=== PATIENT | male | born 1995 | race African-American/Black ===

== ENCOUNTER 2021-06-06 16:31 | Emergency (ER) | payer OTHER ==
[~2021-06-06] VITALS: Ht 180.3 cm; Wt 111.1 kg
[2021-06-06 18:12] LABS: ABSOLUTE NEUTROPHILS 5.9 thou/uL (1.4-8.2); BASOPHILS 0.9 % (0.0-2.0); EOSINOPHILS 0.2 % (0.0-3.0); HEMATOCRIT 47.4 % (42.0-52.0); HEMOGLOBIN 15.8 gm/dL (14.0-18.0); LYMPHOCYTES 13.2 % (24.0-44.0); MCH 31.5 pg (26.0-34.0); MCHC 33.3 g/dL (28.0-37.0); MCV 94.6 fL (80.0-100.0); MONOCYTES 8.7 % (1.0-8.0); PLATELET COUNT 189 thou/uL (150-400); RBC 5.01 mil/uL (4.50-6.00); RDW 13.7 % (10.5-14.5); WBC 7.6 thou/uL (4.0-11.0)
[2021-06-06 18:26] LABS: CALCIUM 8.7 mg/dL (8.5-10.1); CREATININE 1.2 mg/dL (0.7-1.3); POTASSIUM 3.7 mmol/L (3.5-5.1)
[2021-06-06 18:36] LABS: ALBUMIN 3.5 g/dL (3.4-5.0); TOTAL BILIRUBIN 0.3 mg/dL (0.2-1.0)
[2021-06-06 19:27] LABS: URINE BILIRUBIN NEGATIVE (Negative); URINE BLOOD NEGATIVE (Negative); URINE CLARITY CLEAR; URINE COLOR YELLOW; URINE GLUCOSE-RANDOM* NEGATIVE (Negative); URINE KETONES NEGATIVE (Negative); URINE LEUKOCYTES-REFLEX NEGATIVE (Negative); URINE NITRITE-REFLEX NEGATIVE (Negative); URINE PROTEIN (DIPSTICK) NEGATIVE (Negative); URINE SPECIFIC GRAVITY 1.015 (1.005-1.035); URINE UROBILINOGEN 0.2 E.U./dl (0.2-1.0)
[2021-06-06 20:13] VITALS: BP 130/68
--- NOTE | 2021-06-07 07:50 | EKG ---
[place] [address] [facility] [place] [address] ELECTROCARDIOGRAM REPORT Name: RAVI DE LEON Room #: DEP VIJAY Whiteside#: [id number] Admission: 06/06/21 Attend Phys: Discharge: 06/06/21 Date of : [birth year] Report #: [id number] [facility] ED Test Date: 2021-06-06 Test Time: 16:38:29 Pat Name: RAVI DE LEON Department: Room: Gender: Nurse Head: : 1995 Requested By: Latoya Calixto Order Number: [id number] MD: Musa Baker Measurements Intervals [place] Rate: 92 P: 72 SC: 150 QRS: 109 QRSD: 96 T: 39 QT: 318 QTc: 394 Interpretive Statements Sinus rhythm Borderline right axis deviation Borderline T wave abnormalities No previous ECG available for comparison Electronically Signed On 06-07-2021 7:50:20 [employer] by Musa Baker [email or web address] <ELECTRONICALLY SIGNED> By: Musa Baker MD, [facility] 06/07/21 0750 [id number] [id number] Musa Baker MD, FACC /EPI
== END 2021-06-06 20:13 | disposition home or self-care (01) ==
LOC: ER 16:31 → EDBD 16:31 → ER 20:13
PROVIDERS: Nurse Practitioner Family
DX: U07.1 COVID-19 (principal); R55 Syncope and collapse